=== PATIENT | male | born 2000 | race African-American/Black ===

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

== ENCOUNTER 2022-04-13 00:08 | Emergency (ER) | payer BC | END 2022-04-13 01:34 | disposition left against medical advice (07) | LOC: ERS 00:08 | DX: Z53.21 Procedure and treatment not carried out due to patient leaving prior to being seen by health care provider (principal) ==

== ENCOUNTER 2022-04-16 02:14 | Emergency (ER) | payer BC ==
[2022-04-16] MEDS ORDERED: Ibuprofen 800 MG TAB ONE (02:45)
== END 2022-04-16 03:00 ==
LOC: ERS 02:14
DX: R07.9 Chest pain, unspecified (principal); J45.909 Unspecified asthma, uncomplicated
CPT/HCPCS: 71045; 93005